=== PATIENT | female | born 1990 | race American Indian/Alaskan Native ===

== ENCOUNTER 2016-07-03 13:14 | Emergency (ER) | payer SELFPAY ==
[2016-07-03] MEDS ORDERED: ULTRAM PO ONE (16:16)
[2016-07-03 16:26] VITALS: BP 167/58
--- NOTE | 2016-07-03 16:48 | Emergency Department Report ---
Entered by MAURO RIVERA, acting as scribe for KURT SIMPSON PA. ED Abdominal Pain HPI - General Chief Complaint: Recheck/Abnormal Lab/Rx Stated Complaint: PELVIC/BACK PAIN Source: patient Mode of arrival: Ambulatory Limitations: No Limitations - History of Present Illness Initial Comments: 25 year old female with PMHx PCOS presents to the ED for evaluation of lower abdominal pain today. Patient reports pain radiates to her lower back. She notes present episode is consistent with her typical menstrual cycle pain, which began 3 years ago. Patient states pain typically begins 1 day prior to cycle and resolves on 5th day of cycle. Despite taking Tylenol PM 325 mg this morning, pain has persisted. She also requests refills of Prozac, Trazadone, and Xanax. She reports she is not currently under care of a psychiatrist due to insurance issues but notes insurance has been recently been activated. MD Complaint: abdominal pain -: This morning Location: LLQ, RLQ Radiation: back (low) Quality: cramping Consistency: constant Improves With: nothing Worsens With: nothing Context: other (consistent with typical menstrual cycle pain) Associated Symptoms: nausea. denies: vomiting, fever, chills Treatments Prior to Arrival: other (Tylenol PM 325 mg with no relief) - Related Data LMP (females 10-50): 1 month Previous Rx's Medication Instructions Recorded Last Taken Type ALPRAZolam [Xanax TAB] 1 mg PO PRN PRN #14 tab 07/03/16 Unknown Rx FLUoxetine HCL [PROzac] 40 mg PO QDAY #20 capsule 07/03/16 Unknown Rx traMADol [Ultram 50 MG tab] 50 mg PO Q6HR PRN #24 tablet 07/03/16 Unknown Rx Allergies Allergy/AdvReac Type Severity Reaction Status Date / Time Penicillins Allergy Mild Hives Verified 07/03/16 14:16 ED Review of Systems Comment: All other systems reviewed and negative Constitutional: denies: chills, fever Gastrointestinal: abdominal pain (lower abdominal pain), nausea. denies: vomiting Genitourinary: denies: abnormal menses Musculoskeletal: back pain (radiated pain to lower back) ED Past Medical Hx - Past Medical History Hx Psychiatric Treatment: Yes (Bipolar, manic depression) Hx Asthma: Yes Additional medical history: PCOS - Surgical History Additional Surgical History: Tonsilectomy, Adnoidectomy - Social History Smoking Status: Current Every Day Smoker Substance Use Type: Alcohol - Medications Home Medications: Home Medications Medication Instructions Recorded Confirmed Last Taken Type ALPRAZolam [Xanax TAB] 1 mg PO PRN PRN #14 tab 07/03/16 Unknown Rx FLUoxetine HCL [PROzac] 40 mg PO QDAY #20 capsule 07/03/16 Unknown Rx traMADol [Ultram 50 MG tab] 50 mg PO Q6HR PRN #24 tablet 07/03/16 Unknown Rx ED Physical Exam - General Limitations: No Limitations - Other Other exam information: GENERAL: Patient is alert and oriented x 3. No apparent distress, atraumatic. HEAD: Head is normocephalic and atraumatic. NECK: Supple. LUNGS: Symmetrical with respiration. No wheezing, rales or crackles, CTAB. HEART: Regular rate and rhythm with normal S1/S2 present. No murmurs, rubs, or gallops. ABDOMEN: Soft, nondistended. Nontender to palpation on all quadrants. No organomegaly was noted. Positive bowel sounds. No CVA tenderness. EXTREMITIES/MUSCULOSKELETAL: No cyanosis, clubbing, rash, lesions or edema. Full ROM bilaterally. SKIN: Warm and dry. No lesions, ulceration or induration present NEUROLOGIC: No focal deficit., Cranial nerves II - XII are grossly intact. No loss of sensation. No facial droop. PSYCHIATRIC: Mood is congruent with affect. Denies suicidal or homicidal ideations. ED Course Vital Signs 07/03/16 07/03/16 14:07 16:25 Temperature 98.0 F Pulse Rate 84 50 L Respiratory 18 16 Rate Blood Pressure 154/100 Blood Pressure 167/58 [Left] O2 Sat by Pulse 98 99 Oximetry ED Medical Decision Making - Medical Decision Making Patient presents with dysmenorrhea. ED course: Patient received 50 mg of tramadol. Vital signs are stable. This patient is alert and oriented 3 in no acute distress. She states she takes Prozac trazodone and Xanax for her bipolar manic depression disorders. Supination I would not be filling the trazodone rx as she is unsure of the dose and has no proof of taking medication. Discussed to follow up with psychiatry' s for management Discussed the patient to follow up with [facility] doctor as referred. Discussed the patient to follow-up with psychiatrist as referred. Discussed one time medication refill but to follow up with a psychiatrist as referred Patient states she verbally understands and agrees to follow-up. ED Disposition Clinical Impression: Dysmenorrhea, Medication refill Disposition: DISCHARGED TO HOME OR SELFCARE Is pt being admited?: No Does the pt Need Aspirin: No Condition: Stable Instructions: Dysmenorrhea (ED) Prescriptions: ALPRAZolam [Xanax TAB] 1 mg PO PRN PRN #14 tab PRN Reason: Anxiety FLUoxetine HCL [PROzac] 40 mg PO QDAY #20 capsule traMADol [Ultram 50 MG tab] 50 mg PO Q6HR PRN #24 tablet PRN Reason: Pain Referrals: PRIMARY CARE, [Primary Care Provider] - 3-5 Days CELE DRIVER MD [Referring] - 3-5 Days ALDO OWENS MD [Referring] - 3-5 Days MAXI HARRIS MD [Referring] - 3-5 Days ANITHA OLIVO MD [Referring] - 3-5 Days Forms: Work/School Release Form(ED) Time of Disposition: 16:43 This documentation as recorded by the MIGUEL hernandez REBEKAH,accurately reflects the service I personally performed and the decisions made by ,KURT SIMPSON PA.
== END 2016-07-03 17:12 | disposition home or self-care (01) ==
LOC: ED 13:14
DX: N94.6 Dysmenorrhea, unspecified (principal); J45.909 Unspecified asthma, uncomplicated; F31.89 Other bipolar disorder; E28.2 Polycystic ovarian syndrome; F17.200 Nicotine dependence, unspecified, uncomplicated; Z90.89 Acquired absence of other organs; Z88.0 Allergy status to penicillin
CPT/HCPCS: 99282

== ENCOUNTER 2017-07-24 16:27 | Emergency (ER) | payer OTHER ==
[2017-07-24 18:22] LABS: Hematocrit 45.1 % (30.3-42.9); Hemoglobin 15.5 gm/dl (10.1-14.3); Mean Corpuscular HGB Conc 34 % (30-34); Mean Corpuscular Hemoglobin 33 pg (28-32); Mean Corpuscular Volume 96 fl (79-97); Platelet Count 222 K/mm3 (140-440); Red Blood Count 4.68 M/mm3 (3.65-5.03); Red Cell Distribution Width 13.4 % (13.2-15.2)
[2017-07-24 18:32] LABS: Basophils % (Auto) 0.4 % (0.0-1.8); Eosinophils # (Auto) 0.1 K/mm3 (0.0-0.4); Eosinophils % (Auto) 0.9 % (0.0-4.3); Lymphocytes # (Auto) 1.3 K/mm3 (1.2-5.4); Lymphocytes % (Auto) 18.2 % (13.4-35.0); Monocytes # (Auto) 0.5 K/mm3 (0.0-0.8); Monocytes % (Auto) 6.6 % (0.0-7.3)
[2017-07-24 18:33] LABS: BUN/Creatinine Ratio 7; Blood Urea Nitrogen 6 mg/dL (7-17); Calcium 8.7 mg/dL (8.4-10.2); Hemolysis Index 48
--- NOTE | 2017-07-24 18:44 | Emergency Department Report ---
History of Present Illness - General Chief Complaint: Overdose Stated Complaint: SUICIDAL Time Seen by Provider: 07/24/17 18:28 Source: patient, EMS Mode of arrival: Stretcher Limitations: No Limitations - History of Present Illness Initial Comments: 26-year-old female past history of depression evidence that this overdose. Patient states that stress really got worse today so she took 15 500 mg metformin and 420 mg Prozac in an overdose attempt. Patient states that she has been off of her psychiatric medication (seroquel, lamictal) for the past 4 months and she no longer has a psychiatrist due to a change in her insurance. Denies SI, HI, AVH at this time. MD Complaint: intentional overdose - Related Data Previous Rx's Medication Instructions Recorded Last Taken Type ALPRAZolam [Xanax TAB] 1 mg PO PRN PRN #14 tab 07/03/16 Unknown Rx FLUoxetine HCL [PROzac] 40 mg PO QDAY #20 capsule 07/03/16 Unknown Rx traMADol [Ultram 50 MG tab] 50 mg PO Q6HR PRN #24 tablet 07/03/16 Unknown Rx Cephalexin [Keflex] 500 mg PO Q8HR #12 cap 07/25/17 Unknown Rx Allergies Allergy/AdvReac Type Severity Reaction Status Date / Time Penicillins Allergy Mild Hives Verified 07/03/16 14:16 ED Review of Systems ROS: Stated complaint: SUICIDAL Other details as noted in HPI Constitutional: denies: chills, fever Eyes: denies: eye pain, eye discharge, vision change ENT: denies: ear pain, throat pain Respiratory: denies: cough, shortness of breath, wheezing Cardiovascular: denies: chest pain, palpitations Endocrine: no symptoms reported Gastrointestinal: nausea, vomiting. denies: abdominal pain, diarrhea Genitourinary: denies: urgency, dysuria, discharge Musculoskeletal: denies: back pain, joint swelling, arthralgia Skin: denies: rash, lesions Neurological: denies: headache, weakness, paresthesias Psychiatric: depression, suicidal thoughts. denies: anxiety Hematological/Lymphatic: denies: easy bleeding, easy bruising ED Past Medical Hx - Past Medical History Previous Medical History?: Yes Hx Psychiatric Treatment: Yes (Bipolar, manic depression) Hx Asthma: Yes Additional medical history: PCOS - Surgical History Past Surgical History?: Yes Additional Surgical History: Tonsilectomy, Adnoidectomy - Social History Smoking Status: Light Tobacco Smoker Substance Use Type: Alcohol - Medications Home Medications: Home Medications Medication Instructions Recorded Confirmed Last Taken Type ALPRAZolam [Xanax TAB] 1 mg PO PRN PRN #14 tab 07/03/16 Unknown Rx FLUoxetine HCL [PROzac] 40 mg PO QDAY #20 capsule 07/03/16 Unknown Rx traMADol [Ultram 50 MG tab] 50 mg PO Q6HR PRN #24 tablet 07/03/16 Unknown Rx Cephalexin [Keflex] 500 mg PO Q8HR #12 cap 07/25/17 Unknown Rx ED Physical Exam - General Limitations: No Limitations General appearance: alert, in no apparent distress - Head Head exam: Present: atraumatic, normocephalic - Eye Eye exam: Present: normal appearance - ENT ENT exam: Present: mucous membranes moist - Neck Neck exam: Present: normal inspection - Respiratory Respiratory exam: Present: normal lung sounds bilaterally. Absent: respiratory distress - Cardiovascular Cardiovascular Exam: Present: regular rate, normal rhythm. Absent: systolic murmur, diastolic murmur, rubs, gallop - GI/Abdominal GI/Abdominal exam: Present: soft, normal bowel sounds - Extremities Exam Extremities exam: Present: normal inspection - Back Exam Back exam: Present: normal inspection - Neurological Exam Neurological exam: Present: alert, oriented X3 - Psychiatric Psychiatric exam: Present: normal affect, depressed - Skin Skin exam: Present: warm, dry, intact, normal color. Absent: rash ED Course Vital Signs 07/24/17 07/24/17 07/24/17 17:32 17:43 17:49 Temperature 98.6 F Pulse Rate 105 H Respiratory 18 18 Rate Blood Pressure Blood Pressure 131/95 [Right] O2 Sat by Pulse 100 100 100 Oximetry 07/24/17 07/24/17 07/24/17 18:00 18:30 20:43 Temperature Pulse Rate 82 Respiratory 16 Rate Blood Pressure 124/88 118/94 111/73 Blood Pressure [Right] O2 Sat by Pulse 75 L 97 Oximetry 07/24/17 07/24/17 07/24/17 21:06 21:30 22:00 Temperature Pulse Rate 80 75 74 Respiratory 13 9 L 16 Rate Blood Pressure 110/71 116/74 Blood Pressure [Right] O2 Sat by Pulse 97 98 100 Oximetry 07/24/17 07/24/17 07/24/17 22:30 23:00 23:30 Temperature Pulse Rate 68 75 69 Respiratory 10 L 18 23 Rate Blood Pressure 111/70 129/80 125/80 Blood Pressure [Right] O2 Sat by Pulse 97 97 Oximetry ED Medical Decision Making - Lab Data Result diagrams: 07/24/17 18:01 07/24/17 18:01 - EKG Data -: EKG Interpreted by [place] EKG shows normal: sinus rhythm, axis, intervals, QRS complexes, ST-T waves Rate: normal - EKG Data Interpretation: no acute changes - Medical Decision Making 26-year-old female has a history of bipolar disorder presents with medication overdose. Patient took excess of her metformin and Prozac. Patient arrived nauseous, but Hemovac was stable. She is well-appearing. Initial lab works negative for bicarbonate 19. Poison control was called and said that she be medically cleared at 6 hours post ingestion. She took the last pill at 5 PM. The patient will be medically clear at 11 PM. Second set of labs are unremarkable. Patient is medically clear. Urinalysis did show evidence of UTI. Patient will be started on Keflex. Disposition per psychiatric recommendations. Patient is currently on a 1013. Critical care attestation.: If time is entered above; I have spent that time in minutes in the direct care of this critically ill patient, excluding procedure time. ED Disposition Clinical Impression: UTI (urinary tract infection) Disposition: MED SCREENING EXAM-CONT Is pt being admited?: No Condition: Stable Prescriptions: Cephalexin [Keflex] 500 mg PO Q8HR #12 cap Referrals: PRIMARY CARE, [Primary Care Provider] - 3-5 Days
[2017-07-24 19:18] LABS: Alanine Aminotransferase 48 units/L (7-56); Albumin 3.9 g/dL (3.9-5)
[2017-07-24 19:38] LABS: Bilirubin,Direct < 0.2 mg/dL (0-0.2)
[2017-07-24 20:47] LABS: Bilirubin,Urine NEG (Negative); Blood,Urine SM (Negative); Color,Urine Dark Yellow (Yellow); Granular Casts,Urine 8 /LPF; Hyaline Casts,Urine 6 /LPF; Urobilinogen,Urine < 2.0 mg/dL (<2.0)
[2017-07-24 20:50] LABS: Amphetamine Screen,Urine PRESUMPTIVE NEGATIVE; Benzodiazepines Screen,Urine PRESUMPTIVE NEGATIVE; Cannabinoid Screen,Urine PRESUMPTIVE NEGATIVE; Cocaine Screen,Urine PRESUMPTIVE NEGATIVE; Methadone Screen,Urine PRESUMPTIVE NEGATIVE; Opiate Screen,Urine PRESUMPTIVE NEGATIVE
[2017-07-24] MEDS ORDERED: KEFLEX PO ONE (20:55)
[2017-07-25 01:01] LABS: Alanine Aminotransferase 45 units/L (7-56); Albumin 4.1 g/dL (3.9-5)
[2017-07-25 01:11] LABS: Bilirubin,Direct < 0.2 mg/dL (0-0.2)
--- NOTE | 2017-07-25 12:52 | Consultation ---
History of Present Illness - Reason for Consult Consult date: 07/25/17 Reason for consult: Mental Health Evaluation Requesting physician: MOSES BURGESS - Chief Complaint Chief complaint: "I wanted to feel numb" - History of Present Psychiatric Illness 26 y.o. AA female presenting to [facility] for overdosing on multiple pills. Today the patient is calm and cooperative during the assessment. She admitted to taking 10 plus Metformin pills and 4 Prozac pills because she wanted to feel "numb." She stated dealing with financial issues the past few months. She stated that she has attempted suicide twice in the past. She stated that she hate when she feels this way. She rate her depression 7/10, with 10 being the worse. She denies having a manic episodes in the past, she stated "I have depression." She could not state why she took Lamictal in the past. She stated that she have not taking her medications (Lamictal, Remeron, Prozac) in months because of an insurance issue. She denies SI/HI's and AVH's. She denies erratic sleep, but acknowledged a "okay appetite." She denies recreational drug use and alcohol consumption (etoh). Medications and Allergies Allergies Allergy/AdvReac Type Severity Reaction Status Date / Time Penicillins Allergy Mild Hives Verified 07/03/16 14:16 Home Medications Medication Instructions Recorded Confirmed Last Taken Type ALPRAZolam [Xanax TAB] 1 mg PO PRN PRN #14 tab 07/03/16 Unknown Rx FLUoxetine HCL [PROzac] 40 mg PO QDAY #20 capsule 07/03/16 Unknown Rx traMADol [Ultram 50 MG tab] 50 mg PO Q6HR PRN #24 tablet 07/03/16 Unknown Rx Cephalexin [Keflex] 500 mg PO Q8HR #12 cap 07/25/17 Unknown Rx Past psychiatric history - Past Medical History Past Medical History: other (PCOS) Past Surgical History: No surgical history - past Psychiatric treatment and history psychiatric treatment history: Multiple inpatient psy services. Denies a fam psy hx. - Social History Social history: lives with family Mental Status Exam - Vital signs Last Vital Signs Temp 98.6 F 07/24/17 17:32 Pulse 69 07/24/17 23:30 Resp 23 07/24/17 23:30 BP 125/80 07/24/17 23:30 Pulse Ox 97 07/24/17 23:30 - Exam Narrative exam: MSE: Appearance: calm, cooperative Behavior: regular eye contact Speech: regular rate and tone Mood: "depressed" Affect: congruent to mood Thought Process: circumstantial Thought Content: denies SI/HI's and AVH's Motor Activity: ambulatory Cognition: A/O x 3 Insight: variable Judgment: variable Results Result Diagrams: 07/24/17 18:01 07/24/17 18:01 Abnormal lab results 07/24/17 07/24/17 07/24/17 Range/Units 18:01 18:01 18:01 Hgb (10.1-14.3) gm/dl Hct (30.3-42.9) % MCH (28-32) pg Seg Neutrophils % (40.0-70.0) % Carbon Dioxide 19 L (22-30) mmol/L BUN 6 L (7-17) mg/dL Lactic Acid (0.7-2.0) mmol/L AST (5-40) units/L Urine WBC (Auto) (0.0-6.0) /HPF Salicylates < 0.3 L (2.8-20.0) mg/dL Acetaminophen < 5.0 L (10.0-30.0) ug/mL 07/24/17 07/24/17 07/24/17 Range/Units 18:01 18:01 19:00 Hgb 15.5 H (10.1-14.3) gm/dl Hct 45.1 H (30.3-42.9) % MCH 33 H (28-32) pg Seg Neutrophils % 73.9 H (40.0-70.0) % Carbon Dioxide (22-30) mmol/L BUN (7-17) mg/dL Lactic Acid 2.50 H* (0.7-2.0) mmol/L AST 57 H (5-40) units/L Urine WBC (Auto) (0.0-6.0) /HPF Salicylates (2.8-20.0) mg/dL Acetaminophen (10.0-30.0) ug/mL 07/24/17 07/25/17 07/25/17 Range/Units 20:15 00:20 00:20 Hgb (10.1-14.3) gm/dl Hct (30.3-42.9) % MCH (28-32) pg Seg Neutrophils % (40.0-70.0) % Carbon Dioxide (22-30) mmol/L BUN (7-17) mg/dL Lactic Acid (0.7-2.0) mmol/L AST 46 H (5-40) units/L Urine WBC (Auto) 38.0 H (0.0-6.0) /HPF Salicylates < 0.3 L (2.8-20.0) mg/dL Acetaminophen (10.0-30.0) ug/mL 07/25/17 Range/Units 00:20 Hgb (10.1-14.3) gm/dl Hct (30.3-42.9) % MCH (28-32) pg Seg Neutrophils % (40.0-70.0) % Carbon Dioxide (22-30) mmol/L BUN (7-17) mg/dL Lactic Acid (0.7-2.0) mmol/L AST (5-40) units/L Urine WBC (Auto) (0.0-6.0) /HPF Salicylates (2.8-20.0) mg/dL Acetaminophen < 5.0 L (10.0-30.0) ug/mL All other labs normal. Assessment and Plan Assessment and plan: Impression: MDD, Severe Type. Today the patient is calm and cooperative during the assessment. DDx: R/O Bipolar DO Recommendation/Plan: Continue 1013 with placement to inpatient psy services. Monitor patient for Serotonin Syndrome. Reassess in 24 hours with a possibility of initiating a SSRI. Discussed generalized coping skills with patient.
[2017-07-26] MEDS: REMERON PO SCH (22:12)
--- NOTE | 2017-07-27 11:48 | Progress Note ---
Subjective - Reason for Consult Consult date: 07/27/17 Reason for consult: Psychiatry Follow-up - Chief Complaint Chief complaint: "I feel better" 26 y.o. AA female presenting to [facility] for overdosing on multiple pills. Today the patient is calm and cooperative during the assessment. She stated that she feels better. She stated that she should have not taken multiple pills. She stated there's other ways to handle her issues. She denies SI/HI's and AVH's. She denies any side effects of her medication. Mental Status Exam - Vital signs Last Vital Signs Temp 98.6 F 07/26/17 20:00 Pulse 72 07/26/17 20:00 Resp 18 07/26/17 20:00 BP 131/86 07/26/17 20:00 Pulse Ox 98 07/26/17 20:00 - Exam Narrative exam: MSE: Appearance: calm, cooperative Behavior: regular eye contact Speech: regular rate and tone Mood: "okay" Affect: congruent to mood Thought Process: circumstantial Thought Content: denies SI/HI's and AVH's Motor Activity: ambulatory Cognition: A/O x 3 Insight: fair Judgment: fair Assessment and Plan Impression: MDD, Severe Type. Today the patient is calm and cooperative during the assessment. DDx: R/O Bipolar DO Recommendation/Plan: Continue 1013 with placement to inpatient psy services. Continue Remeron 30 mg PO HS for depression. Discussed possible suicidality/ medication induced shelbi with patient reference Remeron. Discussed generalized coping skills with patient.
[2017-07-27 21:04] VITALS: BP 148/92
[2017-07-27] MEDS: REMERON PO SCH (22:06)
== END 2017-07-28 00:35 | disposition home or self-care (01) ==
LOC: ED 16:27
DX: T38.3X2A Poisoning by insulin and oral hypoglycemic [antidiabetic] drugs, intentional self-harm, initial encounter (principal); N39.0 Urinary tract infection, site not specified; J45.909 Unspecified asthma, uncomplicated; Y92.9 Unspecified place or not applicable
CPT/HCPCS: 36415; 80048; 80074; 80307; 81001; 82140; 82805; 84703; 85025; 93005; 93010; 99285; G0480; 80320